=== PATIENT | female | born 1990 | race Caucasian/White ===

== ENCOUNTER → 2021-05-22 | Outpatient (REF) | payer BC, OTHER ==
[2021-05-22 12:42] LABS: BACTERIA, URINE AUTO NEGATIVE (NEGATIVE); MUCUS, URINE SMALL (NEGATIVE); RBC, URINE AUTO 1 /HPF (0-3); SQUAMOUS EPITHELIAL CELL UR AU 1 /HPF (0-6); WBC, URINE AUTO 4 /HPF (0-3)
[2021-05-22 14:15] LABS: GC DNA AMPLIFICATION NEGATIVE (NEGATIVE)
== END ==
LOC: M WUC 12:11
PROVIDERS: ATTEND Physician Assistant
DX: R30.0 Dysuria (principal)